=== PATIENT | male | born 1990 | race Caucasian/White ===

== ENCOUNTER 2019-03-11 23:58 | Emergency (ER) | payer OTHER ==
[~2019-03-11] VITALS: Ht 172.7 cm; Wt 81.6 kg
[2019-03-11 23:58] VITALS: BP 119/59
--- NOTE | 2019-03-12 00:17 | ED.ADGEN ---
Adult General Chief Complaint Chief Complaint ".. I ve got this rash all over my body.. and it has been spreading.. the only thing new is my doctor switched me to trazodone 50 mg... ." HPI HPI Patient is a 29 year old male who presents with above hx and complaints of skin rash. Rash appears to be hive like. Has rash over her entire body. No changes in soaps or foods or other exposures. Recent change in medication to trazodone. No history of travel. No history immunosuppression. Patient is exposed to his who is recently developed shingles. Patient has had chickenpox as a child. Patient normally follows with Dr. Morales Review of Systems Review of Systems Constitutional: Denies fever or chills [] Eyes: Denies change in visual acuity, redness, or eye pain [] HENT: Denies nasal congestion or sore throat [] Respiratory: Denies cough or shortness of breath [] Cardiovascular: No additional information not addressed in HPI [] GI: Denies abdominal pain, nausea, vomiting, bloody stools or diarrhea [] : Denies dysuria or hematuria [] Musculoskeletal: Denies back pain or joint pain [] Integument: Complains of hives over entire body, erythemic diffuse rash Neurologic: Denies headache, focal weakness or sensory changes [] Endocrine: Denies polyuria or polydipsia [] All other systems were reviewed and found to be within normal limits, except as documented in this note. Family History Family History Noncontributory Current Medications Current Medications Current Medications Medications (Trade) Dose Ordered Sig/Teagan Start Time Stop Time Status Last Admin Dose Admin Albuterol Sulfate (Ventolin Hfa Inhaler) 2 puff 1X ONCE 03/12/19 01:00 03/12/19 01:01 DC 03/12/19 01:05 2 PUFF Famotidine (Pepcid Vial) 20 mg STK-MED ONCE 03/12/19 01:01 03/12/19 01:01 DC Methylprednisolone Sodium Succinate (SOLU-Medrol 125MG VIAL) 125 mg STK-MED ONCE 03/12/19 01:00 03/12/19 01:01 DC Allergies Allergies Allergies Coded Allergies Type Severity Reaction Last Updated Verified No Known Drug Allergies 03/12/19 No Physical Exam Physical Exam Constitutional: Well developed, well nourished, in moderately acute distress, non-toxic appearance. [] HENT: Normocephalic, atraumatic, bilateral external ears normal, oropharynx moist, no oral exudates, nose normal. [] Eyes: PERRLA, EOMI, conjunctiva normal, no discharge. [] Neck: Normal range of motion, no tenderness, supple, no stridor. [] Cardiovascular:Heart rate regular rhythm, no murmur [] Lungs & Thorax: Bilateral breath sounds equal at apexes with a few scattered wheezes on auscultation [] Abdomen: Bowel sounds normal, soft, no tenderness, no masses, no pulsatile masses. [] Skin: Warm, dry, diffuse erythemic Rash-hive like in appearance Back: No tenderness, no CVA tenderness. [] Extremities: No tenderness, no cyanosis, no clubbing, ROM intact, no edema. [] Neurologic: Alert and oriented X 3, normal motor function, normal sensory function, no focal deficits noted. [] Psychologic: Affect anxious, judgement normal, mood normal. [] Current Patient Data Vital Signs Vital Signs Date Time Temp Pulse Resp B/P (MAP) Pulse Ox O2 Delivery O2 Flow Rate FiO2 03/12/19 01:16 99 Room Air 03/11/19 23:58 98.5 75 18 EKG EKG [] Radiology/Procedures Radiology/Procedures [] Course & Med Decision Making Course & Med Decision Making Pertinent Labs and Imaging studies reviewed. (See chart for details) Patient take prednisone 50 mg a day for 5 days. Patient take Zantac 150 mg twice day for 10-14 days. Benadryl 50 mg up 4 times a day.. Patient uses MDI 2 puffs 4 times a day. Patient to stop his trazodone and notify for change in meds. Advised patient since rash appears to be a delayed drug reaction that may be several days before he has clearing of rash. He must follow-up primary care. Consider differential diagnosis or other etiologies for rash including syphilis, immunosuppression, inflammatory, toxins. ect. [] Final Impression Final Impression 1. Delayed drug reaction[] 2. History of anxiety disorder Dragon Disclaimer Dragon Disclaimer This electronic medical record was generated, in whole or in part, using a voice recognition dictation system. Dragon Disclaimer This chart was dictated in whole or in part using Voice Recognition software in a busy, high-work load, and often noisy Emergency Department environment. It may contain unintended and wholly unrecognized errors or omissions. OCHOA OBRIEN MD Mar 12, 2019 00:17
[2019-03-12] MEDS ORDERED: PRED50TA PO (00:57)
[2019-03-12] MEDS ORDERED: RANI-376 PO (00:57)
[2019-03-12] MEDS ORDERED: FAMOTIDINE 20 MG/2 ML VIAL IVP ONE (01:00)
[2019-03-12] MEDS ORDERED: methylPREDNISolone SOD SUCC PF 125 MG/2 ML VIAL. ONE (01:00)
[2019-03-12] MEDS ORDERED: ALBUTEROL SULFATE 8GM INHALER. INH ONE (01:00)
[2019-03-12] MEDS ORDERED: methylPREDNISolone SOD SUCC PF 125 MG/2 ML VIAL. IV ONE (01:00)
[2019-03-12] MEDS ORDERED: FAMOTIDINE 20 MG/2 ML VIAL ONE (01:01)
== END 2019-03-12 01:55 | disposition home or self-care (01) ==
LOC: ER 23:58
DX: R21 Rash and other nonspecific skin eruption (principal); T43.215A Adverse effect of selective serotonin and norepinephrine reuptake inhibitors, initial encounter; F41.9 Anxiety disorder, unspecified; Y92.89 Other specified places as the place of occurrence of the external cause
CPT/HCPCS: 94640; 96374; 96375; 99284; J2930; J3490; J7613; 94664